=== PATIENT | male | born 1940 | race Caucasian/White ===

== ENCOUNTER → 2017-03-02 | Outpatient (CLI) | payer MEDICARE ==
[~2017-03-02] MED LIST: AMLO-99 PO; AMLO1TAB PO; ASPI-1403 PO; CODE118S5 PO; LATA2.5D7 OP; METO-253 PO; METO50TA19 PO; OMEG-24 PO; PRAV20TA66 PO
[2017-03-02 11:41] LABS: PLATELET COUNT, AUTOMATED 195 K/uL (150-450)
== END ==
LOC: LAB 11:18
PROVIDERS: ATTEND Emergency Medicine
DX: Z12.5 Encounter for screening for malignant neoplasm of prostate (principal); I10 Essential (primary) hypertension; R41.3 Other amnesia
CPT/HCPCS: 36415; 82607; 84443; 85007; 85027; 86140; G0103; 82040; 82247; 82310; 82374; 82435; 82465; 82565; 82947; 83718; 84075; 84132; 84153; 84155; 84295; 84450; 84460; 84478; 84520

== ENCOUNTER → 2017-03-16 | Outpatient (CLI) | payer MEDICARE, OTHER ==
[~2017-03-16] MED LIST changes: +ATOR40TA24 PO; +DIPH0.5D12 IM; +PNEU0.5D3 IM
[2017-03-16 10:21] LABS: PLATELET COUNT, AUTOMATED 308 K/uL (150-450)
== END ==
LOC: LAB 10:08
PROVIDERS: ATTEND Emergency Medicine
DX: D72.821 Monocytosis (symptomatic) (principal); E78.5 Hyperlipidemia, unspecified
CPT/HCPCS: 36415; 82310; 82374; 82435; 82465; 82565; 82947; 83718; 84132; 84295; 84478; 84520; 85025

== ENCOUNTER → 2017-04-08 | Outpatient (CLI) | payer MEDICARE, OTHER | LOC: LAB 09:32 | PROVIDERS: ATTEND Emergency Medicine | DX: E78.5 Hyperlipidemia, unspecified (principal) | CPT/HCPCS: 36415; 82465; 83718; 84478 ==

== ENCOUNTER 2018-03-06 11:01 | Emergency (ER) | payer MEDICARE, OTHER ==
[~2018-03-06 11:01] MED LIST changes: +AMLO-127 PO; -AMLO-99 PO
--- NOTE | 2018-03-06 11:30 | ER Report ---
History and Physical Time Seen By MD: 11:08 Hx. of Stated Complaint: PT GOT THUMB CAUGHT IN A COMPACTOR. STATES HIS THUMB IS SEVERED. BLEEDING IS CONTROLLED, THUMB IS WRAPED HPI/ROS CHIEF COMPLAINT: Right thumb injury HISTORY OF PRESENT ILLNESS: 78-year-old male patient presents to the emergency room with complaint of injury to the right thumb. Patient states he is trying to push the trash compactor back and when he got his thumb caught between the trash compactor and the counter. Patient states that it did pull up the thumbnail. He notes he does have some cuts to the end of the thumb. Patient states he is up-to-date on his tetanus. Patient has not taken any medication for this. He did apply pressure shortly after this happened. Allergies: Coded Allergies: penicillin (Unverified Allergy, Unknown, 08/29/14) Uncoded Allergies: HAYFEVER (Adverse Reaction, Mild, 08/29/14) SEASONAL Home Meds Active Scripts Cephalexin 500 Mg Tab (KEFLEX 500 MG TAB) 500 Mg Tablet, 500 MG PO Q6H, #28 TAB Prov:JEROMY FRANCIS 03/06/18 Atorvastatin Calcium (LIPITOR) 40 Mg Tablet, 1 TAB PO QDAY, #90 TAB 3 Refills Prov:TULIO PULLIAM MD 04/09/17 Amlodipine Besylate (AMLODIPINE BESYLATE) 10 Mg Tablet, 1 TAB PO QDAY, #90 TAB 3 Refills Prov:TULIO PULLIAM MD 03/09/17 Metoprolol Succinate (METOPROLOL SUCCINATE) 50 Mg Tab.er.24h, 1 TAB PO QDAY, #90 TAB 3 Refills Prov:TULIO PULLIAM MD 03/02/17 Reported Medications [place]-3 Fatty Acids/Fish Oil (FISH OIL 1,200 MG SOFTGEL) 1 Each Capsule, 2 EACH PO QDAY, CAPSULE 08/29/14 Aspirin (ADULT LOW DOSE ASPIRIN EC) 81 Mg Tablet.dr, 81 MG PO QDAY 08/29/14 Latanoprost (LATANOPROST) 2.5 Ml Drops, 1 GTT OP QDAY 08/29/14 Past Medical/Surgical History Patient has a past medical history of irregular heartbeat, hypertension, hyperlipidemia, hemorrhoids, hernia, joint pain, back pain, alcohol use, melanoma. Patient has a surgical history of cataract surgery, wisdom teeth removed, hernia repair, melanoma removed. Reviewed Nurses Notes: Yes Hx Smoking: No Smoking Status: Never Smoker Exposure to Second Hand Smoke?: No Hx Substance Use Disorder: No Hx Alcohol Use: Yes Constitutional Vital Sign - Last 24 Hours 03/06/18 03/06/18 03/06/18 03/06/18 11:01 11:08 11:08 11:30 Temp 97.7 Pulse ??? 73 Resp 16 B/P (MAP) 137/88 137/88 (104) 125/92 (103) Pulse Ox 90 O2 Delivery Room Air 03/06/18 03/06/18 03/06/18 03/06/18 11:31 11:59 12:01 12:31 Pulse 61 72 66 B/P (MAP) 125/74 (91) Pulse Ox 92 Physical Exam General appearance: Alert no distress. Respiratory: Chest is non tender, lungs are clear to auscultation. Cardiac: Regular rate and rhythm. Skin: Patient appears to have a partial avulsion of the right thumbnail, also has a cut to the distal and lateral thumb. They measure approximately 2 mm apiece. DIFFERENTIAL DIAGNOSIS: After history and physical exam differential diagnosis was considered for laceration, nail avulsion. Medical Decision Making ED Course/Re-evaluation ED Course Patient was admitted to an exam room, history and physical were obtained. Differential diagnoses were considered. On examination lungs are clear, heart is regular, patient does have wound to the left thumb. Appears that he is pulled the distal portion of the nail up and torn the skin underneath it. The thumb was anesthetized, cleaned and repaired as described below. Patient tolerated procedure well. We'll go ahead and discharge patient home at this time. We will go ahead and put him on antibiotics, Keflex 500 mg 4 times a day 7 days. He states that 2 prevent that from getting infected. Patient was placed in a splint to help with comfort. Patient is to follow-up with his primary care provider in 7-10 days to have sutures removed. Patient is to keep the hand dry for the next 48 hours. He is to take Tylenol ibuprofen as if pain. Patient verbalized understanding and agreement with plan. Procedure: Laceration repair. Verbal consent was obtained from the patient. The 1 cm laceration on the right thumb was anesthetized in the usual fashion. The wound was scrubbed, draped and explored to its base with a gloved finger. There were no deep structures involved. No tendon injury was identified. The wound was repaired with 4 simple interrupted sutures using 5-0 Prolene material. The wound repair was simple. The procedure was performed by myself. Decision to Disposition Date: Mar 06, 2018 Decision to Disposition Time: 12:30 Depart Departure Latest Vital Signs Vital Signs Date Time Temp Pulse Resp B/P (MAP) Pulse Ox O2 Delivery O2 Flow Rate FiO2 03/06/18 12:31 66 03/06/18 11:59 125/74 (91) 03/06/18 11:31 92 03/06/18 11:08 97.7 16 Room Air Impression: Primary Impression: Laceration of thumb with damage to nail Condition: Improved Disposition: HOME OR SELF-CARE Referrals: TULIO PULLIAM MD (PCP) New Scripts Cephalexin 500 Mg Tab (KEFLEX 500 MG TAB) 500 Mg Tablet 500 MG PO Q6H, #28 TAB Prov: JEROMY FRANCIS 03/06/18 Patient Instructions: Finger Laceration (ED) Additional Instructions: Keep wound dry for 48 hours. Follow up with your primary care provider in the next 7-10 days to have sutures removed. Monitor for signs of infection; redness, swelling, heat, discharge, increasing pain or red streaking. Take Tylenol or Ibuprofen as needed for pain. Return to the ER with any concerns. You may change dressing as needed. Problem Qualifiers Primary Impression: Laceration of thumb with damage to nail Encounter type: initial encounter Foreign body presence: without foreign body Laterality: right Qualified Codes: S61.111A - Laceration without foreign body of right thumb with damage to nail, initial encounter JEROMY FRANCIS Mar 06, 2018 11:30
[2018-03-06 11:59] VITALS: BP 125/74
[2018-03-06] MEDS ORDERED: CEPH500T7 PO (12:31)
== END 2018-03-06 12:58 | disposition home or self-care (01) ==
LOC: ER 11:15
DX: S61.111A Laceration without foreign body of right thumb with damage to nail, initial encounter (principal); W31.89XA Contact with other specified machinery, initial encounter
CPT/HCPCS: 99283

== ENCOUNTER → 2018-04-26 | Outpatient (CLI) | payer MEDICARE ==
[~2018-04-26] MED LIST changes: +CEPH500T7 PO
== END ==
LOC: LAB 10:31
PROVIDERS: ATTEND Emergency Medicine
DX: E78.5 Hyperlipidemia, unspecified (principal); I10 Essential (primary) hypertension
CPT/HCPCS: 36415; 86140

== ENCOUNTER → 2018-05-24 | Outpatient (CLI) | payer MEDICARE ==
[~2018-05-24] MED LIST changes: +CHOL10005 PO
[2018-05-24 10:05] LABS: PLATELET COUNT, AUTOMATED 255 K/uL (150-450)
== END ==
LOC: LAB 09:41
PROVIDERS: ATTEND Emergency Medicine
DX: E78.5 Hyperlipidemia, unspecified (principal); G62.9 Polyneuropathy, unspecified; I10 Essential (primary) hypertension
CPT/HCPCS: 36415; 82306; 82550; 83036; 84207; 84443; 85025; G0103; 82040; 82247; 82310; 82374; 82435; 82465; 82565; 82947; 83718; 84075; 84132; 84153; 84155; 84295; 84450; 84460; 84478; 84520